=== PATIENT | female | born 1995 | race African-American/Black ===

== ENCOUNTER 2019-12-17 21:33 | Emergency (ER) | payer OTHER ==
[2019-12-17] MEDS ORDERED: Albuterol/Ipratropium NEB.SOL* Albuterol 2.5 MG/Ipratropium 0.5 MG 3 ML INH ONE (21:44)
[2019-12-17] MEDS ORDERED: methylPREDNISolone 125 MG* 2 ML VIAL IM ONE (21:44)
[2019-12-17 21:46] VITALS: BP 146/81
--- NOTE | 2019-12-17 21:50 | UC ---
Respiratory Complaint HPI - HPI Summary HPI Summary: C/O worsening SOB since last night. Using albuterol inhaler but lasting < 2 hours. Was exposed to cats. No URI sx. No fevers. - History of Current Complaint Stated Complaint: ASTHMATIC Time Seen by Provider: 12/17/19 21:41 Hx Obtained From: Patient ?: No Onset/Duration: Sudden Onset, Lasting Days - 1, Worse Since - today Timing: Constant Severity Initially: Mild Severity Currently: Moderate Character: Cough: Nonproductive Aggravating Factors: Allergens - cats Alleviating Factors: Bronchodilator - but not lasting 4 hours. Associated Signs And Symptoms: Positive: Wheezing, Hoarseness. Negative: Fever , Chills, URI, Nasal Congestion - Allergies/Home Medications Allergies/Adverse Reactions: Allergies Allergy/AdvReac Type Severity Reaction Status Date / Time No Known Allergies Allergy Verified 12/17/19 21:41 Home Medications: Home Medications Albuterol HFA INHALER* [Ventolin HFA Inhaler*] 1 puff Q6HR PRN 12/17/19 [ History Confirmed 12/17/19] Cetirizine* [ZyrTEC 10 MG TAB*] 1 tab DAILY 12/17/19 [History Confirmed 12/17/19 ] Etonogestrel [Nexplanon] 1 implant ONCE 12/17/19 [History Confirmed 12/17/19] Montelukast Sodium TAB* [Singulair 10 MG TAB*] 1 tab DAILY 12/17/19 [History Confirmed 12/17/19] predniSONE 20 mg TAB [Deltasone 20 MG TAB*] 60 mg PO DAILY #18 tab 12/17/19 [Rx] PMH/Surg Hx/FS Hx/Imm Hx Respiratory History: Asthma - Family History Known Family History: Positive: Hypertension - Social History Occupation: Employed Full-time Lives: Alone - with a roommate Review of Systems All Other Systems Reviewed And Are Negative: Yes Respiratory: Positive: Shortness Of Breath, Cough Physical Exam Triage Information Reviewed: Yes Appearance: Well-Appearing, No Pain Distress, Well-Nourished Vital Signs Reviewed: Yes Eyes: Positive: Conjunctiva Clear ENT: Positive: Pharynx normal, TMs normal Neck exam: Normal Respiratory: Positive: No respiratory distress, Wheezing - diffuse end expiratory wheeze. Negative: Accessory muscle use Cardiovascular Exam: Normal Musculoskeletal Exam: Normal Neurological Exam: Normal Psychological Exam: Normal Skin Exam: Normal Re-Evaluation - Re-Evaluation First Eval Re-Evaluation Time: 22:04 Change: Improved - Lungs clear after 1 nebulizer Respiratory Course/Dx - Differential Dx/Diagnosis Differential Diagnosis/HQI/PQRI: Asthma, Laryngitis, Lower Resp Infection, Sinusitis Provider Diagnosis: Acute asthma exacerbation, Elevated blood pressure reading Discharge ED - Sign-Out/Discharge Documenting (check all that apply): Patient Departure All imaging exams completed and their final reports reviewed: No Studies - Discharge Plan Condition: Stable Disposition: HOME Prescriptions: predniSONE 20 mg TAB [Deltasone 20 MG TAB*] 60 mg PO DAILY #18 tab Patient Education Materials: Asthma (ED) Referrals: No Primary Care Phys,NOPCP [Primary Care Provider] - (Need to follow up with a doctor about your blood pressure.) - Billing Disposition and Condition Condition: STABLE Disposition: Home
== END 2019-12-17 22:08 | disposition home or self-care (01) ==
LOC: UCCORT 21:33
DX: J45.901 Unspecified asthma with (acute) exacerbation (principal); R03.0 Elevated blood-pressure reading, without diagnosis of hypertension; Z79.899 Other long term (current) drug therapy
CPT/HCPCS: 96372; 99202; A9270-GY; G0463; J2930